=== PATIENT | female | born 1995 | race Two or more races ===

== ENCOUNTER 2023-09-12 15:58 | Observation (INO) | payer MEDICAID, OTHER ==
[~2023-09-12] VITALS: Ht 152.4 cm; Wt 73.6 kg
[2023-09-12 16:00] VITALS: BP 121/79; PULSE 115; RESP 18; O2SAT 100
[2023-09-12] MEDS ORDERED: LACTATED RINGER'S 1,000 ML IV ONE (17:00)
[2023-09-12] MEDS ORDERED: TERBUTALINE SULFATE 1 MG/ML 1ML VIAL SC SCH (17:00)
[2023-09-12] MEDS ORDERED: ACETAMINOPHEN 500 MG TAB PO ONE (17:00)
[2023-09-12] MEDS ORDERED: BETAMETHASONE ACET (30mg/5ml) 5ml Vial 6mg/ml IM ONE (17:00)
[2023-09-12] MEDS ORDERED: PREN-96 PO (18:04)
[2023-09-12 19:33] LABS: Urine Bacteria NONE SEEN /hpf (None Seen); Urine Blood Negative /uL (Negative); Urine Clarity Clear (Clear); Urine Color Yellow (Yellow); Urine Mucus FEW (None Seen); Urine Protein, UAD Negative (Negative); Urine Specific Gravity 1.021 (1.001-1.035); Urine Urobilinogen Normal (Negative); Urine WBC 3 /hpf (0 - 5); Urine pH 6.5 (5.0-8.0)
[2023-09-12 19:37] LABS: Amphetamine Screen, Urine Neg (NEGATIVE); Barbiturate Scree,Urine Neg (NEGATIVE); Benzodiazephine Screen, Urine Neg (NEGATIVE); Cannabinoid Screen, Urine Neg (NEGATIVE); Cocaine Screen, Urine Neg (NEGATIVE); Opiate Scree,Urine Neg (NEGATIVE); Phencyclidine Screen, Urine Neg (NEGATIVE)
== END 2023-09-12 21:08 | disposition home or self-care (01) ==
LOC: ER 15:58 → LDRP 16:14
PROVIDERS: ADMIT Obstetrics & Gynecology; ATTEND Obstetrics & Gynecology
DX: O60.03 Preterm labor without delivery, third trimester (principal); O99.891 Other specified diseases and conditions complicating pregnancy; M54.50 Low back pain, unspecified; Z79.899 Other long term (current) drug therapy; Z3A.34 34 weeks gestation of pregnancy
CPT/HCPCS: 59025; 76817; 76818; 80307; 81001; 81002; 94760; 96360; 96372; 99284; G0378; J0702